=== PATIENT | male | born 1995 | race Caucasian/White ===

== ENCOUNTER 2025-04-10 00:57 | Emergency (ER) | payer SELFPAY ==
[~2025-04-10] VITALS: Ht 165.1 cm; Wt 88.9 kg
[2025-04-10 01:08] VITALS: BP 115/66
[2025-04-10] MEDS ORDERED: AMOX-430 PO (01:30)
[2025-04-10] MEDS: AMOXICILLIN-CLAVUL 875-125MG TABLET PO ONE (01:43)
[2025-04-10 01:50] VITALS: BP 115/66; O2SAT 99
== END 2025-04-10 01:51 | disposition home or self-care (01) ==
LOC: ER 01:08
DX: J06.9 Acute upper respiratory infection, unspecified (principal); F17.210 Nicotine dependence, cigarettes, uncomplicated
CPT/HCPCS: A4606; A4663